=== PATIENT | male | born 1990 | race Caucasian/White ===

== ENCOUNTER 2018-08-26 02:40 | Emergency (ER) | payer MEDICAID ==
[2018-08-26] MEDS: DIPHTH/TET/ACEL PERTUSS (ADULT) 0.5 ML VIAL IM* (03:39)
[2018-08-26] MEDS: HYDROCODONE/APAP (5/325) TAB PO (03:52)
== END 2018-08-26 04:36 | disposition home or self-care (01) ==
LOC: FTE 02:40
DX: M79.671 Pain in right foot (principal); L84 Corns and callosities; N48.1 Balanitis; I10 Essential (primary) hypertension; E11.9 Type 2 diabetes mellitus without complications; F17.210 Nicotine dependence, cigarettes, uncomplicated
CPT/HCPCS: 73630; 82962; 90715; 99283-25